=== PATIENT | female | born 1965 | race Caucasian/White ===

== ENCOUNTER 2017-05-15 19:09 | Emergency (ER) | payer OTHER, BC ==
[~2017-05-15] VITALS: Ht 160 cm; Wt 82.3 kg
[2017-05-15] MEDS ORDERED: MOTRIN600 MG PO (20:30)
[2017-05-15 20:36] VITALS: BP 148/99
== END 2017-05-15 20:37 | disposition home or self-care (01) ==
LOC: EME 19:09
DX: S80.01XA Contusion of right knee, initial encounter (principal); W10.9XXA Fall (on) (from) unspecified stairs and steps, initial encounter; I10 Essential (primary) hypertension; F17.200 Nicotine dependence, unspecified, uncomplicated
CPT/HCPCS: 73564; 99281; 99283